=== PATIENT | female | born 1985 | race Caucasian/White ===

== ENCOUNTER 2019-04-27 07:23 | Emergency (ER) | payer SELFPAY ==
[~2019-04-27] VITALS: Ht 157.5 cm; Wt 86.4 kg
[2019-04-27] MEDS ORDERED: [UNRECOGNIZED DRUG - OTHER] PO (07:37)
[2019-04-27] MEDS ORDERED: LEVO50 PO (07:37)
[2019-04-27] MEDS ORDERED: MECLIZINE HCL 25 MG TABLET PO ONE (08:45)
[2019-04-27] MEDS ORDERED: SODIUM CHLORIDE 0.9% 1,000 ML IV ONE (08:45)
[2019-04-27] MEDS ORDERED: ONDANSETRON HCL 4 MG/2 ML VIAL IVP ONE (08:45)
[2019-04-27] MEDS ORDERED: ACETAMINOPHEN 500 MG TABLET PO ONE (08:45)
[2019-04-27 09:05] LABS: BASOPHILS % (AUTO) 0.4 % (0.0-2.0); EOSINOPHILS % (AUTO) 0 % (1.0-6.0); HEMATOCRIT 41.6 % (36-46); HEMOGLOBIN 13.5 g/dL (12.0-16.0); LYMPHOCYTES # (AUTO) 1.6 K/uL (1.0-4.8); LYMPHOCYTES % (AUTO) 16.7 % (22.0-44.0); MEAN CORPUSCULAR HEMOGLOBIN 26.8 pg (26.0-34.0); MEAN CORPUSCULAR HGB CONC 32.4 G/dL (31.0-37.0); MEAN CORPUSCULAR VOLUME 83 fL (80-100); MONOCYTES # (AUTO) 0.4 K/uL (0.1-1.0); MONOCYTES % (AUTO) 4.4 % (2.0-9.0); NEUTROPHILS # (AUTO) 7.7 K/uL (1.8-7.7); NEUTROPHILS % (AUTO) 78.5 % (40.0-70.0); PLATELET COUNT (AUTO) 249 K/uL (150-450); RED BLOOD CELL COUNT(AUTO) 5.04 MIL/uL (4.00-5.20); RED CELL DISTRIBUTION WIDTH 12.7 % (11.5-14.5)
[2019-04-27 09:16] LABS: ANION GAP 12 mmol/L (8-16); CARBON DIOXIDE 24 mmol/L (22-29); CHLORIDE 100 mmol/L (98-107); CREATININE 0.91 mg/dL (0.60-1.30); GLOMERULAR FILTR. RATE CALC > 60 mL/min (>60); GLUCOSE,RANDOM 104 mg/dL (70-110); POTASSIUM 4.1 mmol/L (3.5-5.1); SODIUM SERUM 136 mmol/L (136-145); UREA NITROGEN, BLOOD 18 mg/dL (7-18)
[2019-04-27 09:29] LABS: ALANINE AMINOTRANSFERASE 22 U/L (12-78); ALBUMIN 3.6 g/dL (3.4-5.0); ALKALINE PHOSPHATASE 52 U/L (46-116); ASPARTATE AMINOTRANSFERASE 14 U/L (15-37); BILIRUBIN,TOTAL 0.1 mg/dL (0.1-1.0); HCG,QUANTITATIVE < 1 mIU/mL (0-6); TOTAL PROTEIN, SERUM 8.6 g/dL (6.4-8.2)
[2019-04-27 12:01] VITALS: BP 124/62
== END 2019-04-27 12:26 | disposition home or self-care (01) ==
LOC: EMS 07:27
DX: J32.9 Chronic sinusitis, unspecified (principal); R42 Dizziness and giddiness; E03.9 Hypothyroidism, unspecified
CPT/HCPCS: 36415; 70450; 70486; 80053; 84702; 85025; 93005; 96361; 96374; 99284; J2405; J7030